=== PATIENT | female | born 1985 | race Caucasian/White ===

== ENCOUNTER 2017-02-14 14:52 | Inpatient (IN) | payer OTHER ==
[~2017-02-14] VITALS: Ht 170.2 cm; Wt 68.5 kg
[2017-02-14] MEDS ORDERED: LORAZEPAM 2 MG/1 ML VIAL IV ONE (15:07)
[2017-02-14] MEDS ORDERED: ONDANSETRON IV *ER 4 MG/2 ML VIAL IV ONE (15:08)
[2017-02-14] MEDS ORDERED: diphenhydrAMINE 50 MG/1 ML VIAL IV ONE (15:09)
[2017-02-14] MEDS ORDERED: IV NS 1000 ML 1,000 ML IV ONE ×2 (15:15→17:00)
[2017-02-14] MEDS ORDERED: PANTOPRAZOLE SODIUM 40 MG VIAL IV ONE (15:15)
[2017-02-14 15:27] LABS: BASOPHILS # (AUTO) 0.1 K/uL (0.0-8.0); BASOPHILS % (AUTO) 0.7 % (0.0-2.0); LYMPHOCYTES # (AUTO) 0.7 K/uL (20.0-40.0); LYMPHOCYTES % (AUTO) 6.7 % (20.5-51.5); MEAN CORPUSCULAR HGB CONC 34 g/dL (32.3-35.6); MEAN CORPUSCULAR VOLUME 102.2 fL (75.5-95.3); MONOCYTES # (AUTO) 0.9 K/uL (2.0-10.0); MONOCYTES % (AUTO) 8.5 % (0.0-11.0); NEUTROPHILS # (AUTO) 8.8 K/uL (1.8-8.9); NEUTROPHILS % (AUTO) 84.1 % (38.5-71.5); PLATELET COUNT (AUTO) 91 K/uL (179-408); WHITE BLOOD COUNT (AUTO) 10.4 K/uL (3.8-11.8)
--- NOTE | 2017-02-14 15:35 | NUR ---
PT IS IN ROOM #1A. DR MCMAHAN EVALUATED THE PT.
[2017-02-14] MEDS ORDERED: LORAZEPAM 2 MG/1 ML VIAL ONE (15:38)
[2017-02-14] MEDS ORDERED: diphenhydrAMINE 50 MG/1 ML VIAL ONE (15:39)
[2017-02-14] MEDS ORDERED: ONDANSETRON 4 MG/2 ML VIAL ONE (15:39)
[2017-02-14] MEDS ORDERED: PANTOPRAZOLE SODIUM 40 MG VIAL ONE (15:39)
[2017-02-14 16:29] LABS: ALANINE AMINOTRANSFERASE 72 U/L (14-59); ALKALINE PHOSPHATASE 63 U/L (50-136); ASPARTATE AMINOTRANSFERASE 240 U/L (15-37); BILIRUBIN,DIRECT 1.1 mg/dL (0.0-0.2); BILIRUBIN,TOTAL 2.3 mg/dL (0.2-1.0); CARBON DIOXIDE 13 mmol/L (21-32); CHLORIDE 90 mmol/L (98-107); CREATININE 1.3 mg/dL (0.6-1.3); GLUCOSE 231 mg/dL (74-106); POTASSIUM 3.6 mmol/L (3.5-5.1); TOTAL PROTEIN, SERUM 8.5 g/dL (6.4-8.2); UREA NITROGEN, BLOOD 10 mg/dL (7-18)
[2017-02-14 16:31] LABS: ACETAMINOPHEN < 2.0 ug/mL (10-30)
[2017-02-14 16:42] LABS: BAND % (MANUAL) 2 % (0-10); LYMPHOCYTES % (MANUAL) 6 % (20-40); MONOCYTES % (MANUAL) 8 % (2-10); NEUTROPHILS % (MANUAL) 84 % (42-75)
[2017-02-14 16:48] LABS: ETHANOL < 3 MG/DL (0-0)
--- NOTE | 2017-02-14 19:14 | NUR ---
REPORT GIVEN TO PARA EDUCATOR RN.
[2017-02-14 20:00] VITALS: BP 133/79
[2017-02-14] MEDS ORDERED: ACETAMINOPHEN 325 MG TABLET PO PRN (20:00)
[2017-02-14] MEDS ORDERED: Z GUARD REMEDY PASTE 57 GM TUBE TOP PRN (20:00)
[2017-02-14] MEDS ORDERED: ONDANSETRON 4 MG/2 ML VIAL IV PRN (20:00)
[2017-02-14] MEDS ORDERED: LORAZEPAM 2 MG/1 ML VIAL IV PRN (20:00)
[2017-02-14] MEDS ORDERED: MAGNESIUM HYDROXIDE 30 ML LIQUID UDC PO PRN (20:00)
[2017-02-14] MEDS ORDERED: ZOLPIDEM 5 MG TABLET PO PRN (20:00)
--- NOTE | 2017-02-14 20:50 | NUR ---
Pt admited from ER Dx of sz d/o and ETOH abuse. Arrived per natalie in company of ER staff. AAO X 3, follows simple commands, denied any pain or discomfort at the moment, no seizure activities present. Assessment completed, VSS, afebrile. Oriented to room, verbalized understanding, continue to monitor.
--- NOTE | 2017-02-14 20:56 | NUR ---
Ondina Hugo INDUCTION MACHINE OPERATOR at bedside to assess pt.
[2017-02-14 21:00] VITALS: BP 151/92
[2017-02-14 21:30] LABS: CREATININE 0.9 mg/dL (0.6-1.3); POTASSIUM 3.3 mmol/L (3.5-5.1)
[2017-02-14 22:00] VITALS: BP 124/80
[2017-02-14] MEDS: HYDROCODONE/APAP 5-325MG TABLET PO PRN (22:29)
[2017-02-14] MEDS: CHLORDIAZEPOXIDE HCL 25 MG CAPSULE PO SCH (22:30)
[2017-02-14] MEDS ORDERED: POTASSIUM CHLORIDE 20 MEQ TAB.PRT.SR PO ONE (22:30)
[2017-02-14] MEDS ORDERED: CHLORDIAZEPOXIDE HCL 25 MG CAPSULE ONE (22:41)
[2017-02-14] MEDS: GABAPENTIN 100 MG CAPSULE PO SCH (22:46)
[2017-02-14] MEDS: IV NS 1000 ML 1,000 ML IV PRN (22:46)
[2017-02-14 22:52] LABS: *BLOOD, URINE Trace-lysed (NEGATIVE); *CLARITY,URINE SLIGHTLY CLOUDY (CLEAR); *COLOR,URINE DARK YELLOW (YELLOW); *KETONES,URINE 4+ (NEGATIVE); *PROTEIN,URINE 2+ (NEGATIVE); LEUKOCYTE ESTERASE ,URINE NEGATIVE (NEGATIVE); NITRITE, URINE POSITIVE (NEGATIVE); UGLUCOSE NEGATIVE (NEGATIVE)
[2017-02-14] MEDS ORDERED: POTASSIUM CHLORIDE 20 MEQ TAB.PRT.SR ONE (22:52)
[2017-02-14] MEDS ORDERED: GABAPENTIN 100 MG CAPSULE ONE (22:59)
[2017-02-14 23:00] VITALS: BP 132/94
[2017-02-14 23:02] LABS: *AMPHETAMINE, URINE NEGATIVE (NEGATIVE); *BARBITURATE, URINE NEGATIVE (NEGATIVE); *CANNABINOID, URINE NEGATIVE (NEGATIVE); *COCCAINE, URINE NEGATIVE (NEGATIVE); *OPIATE, URINE NEGATIVE (NEGATIVE); *PHENCYCLIDINE SCREEN,URINE NEGATIVE (NEGATIVE)
[2017-02-14 23:08] LABS: *BILIRUBIN,URIN 2+ (NEGATIVE)
[2017-02-14 23:17] LABS: BACTERIA,URINE MODERATE /HPF (NONE SEEN); RBC,URINE 0-3 /HPF (0-3); SQUAMOUS EPITHELIAL CELL,UR MODERATE /HPF (NONE SEEN); WBC,URINE 0-3 /HPF (0-3)
[2017-02-15] VITALS (9 sets, daily range): BP systolic 108–140; BP diastolic 78–92
[2017-02-15 05:54] LABS: BASOPHILS % (AUTO) 0.4 % (0.0-2.0); EOSINOPHILS % (AUTO) 0.6 % (0.0-7.0); HEMATOCRIT 36.3 % (31.2-41.9); HEMOGLOBIN 12.4 g/dL (10.9-14.3); LYMPHOCYTES # (AUTO) 1.2 K/uL (20.0-40.0); LYMPHOCYTES % (AUTO) 21.4 % (20.5-51.5); MEAN CORPUSCULAR HEMOGLOBIN 34.4 uug (24.7-32.8); MEAN CORPUSCULAR HGB CONC 34 g/dL (32.3-35.6); MEAN CORPUSCULAR VOLUME 100.8 fL (75.5-95.3); MONOCYTES # (AUTO) 0.8 K/uL (2.0-10.0); MONOCYTES % (AUTO) 14.3 % (0.0-11.0); NEUTROPHILS # (AUTO) 3.5 K/uL (1.8-8.9); NEUTROPHILS % (AUTO) 63.3 % (38.5-71.5); PLATELET COUNT (AUTO) 65 K/uL (179-408); WHITE BLOOD COUNT (AUTO) 5.5 K/uL (3.8-11.8)
[2017-02-15 06:12] LABS: CREATININE 0.8 mg/dL (0.6-1.3); MAGNESIUM 1.7 mg/dL (1.8-2.4); PHOSPHOROUS 1.5 mg/dL (2.5-4.9); POTASSIUM 3.5 mmol/L (3.5-5.1)
[2017-02-15] MEDS: IV NS 1000 ML 1,000 ML IV PRN (06:19)
--- NOTE | 2017-02-15 07:45 | NUR ---
CCU [facility] TO TRANSFER TO [facility] PER DR ZHU. RECIEVED PT AWAKE AND ORIENTEDX3. NO SEIZURES EPISODE THROUGHOUT THE NIGHT. DENIES ANY DISCOMFORTS. PT VERBALIZED SHE WANTED TO GO HOME.
--- NOTE | 2017-02-15 08:35 | NUR ---
REPORT GIVEN TO DEBRA WEAVER. PT TRANSFERRED TO [facility] . CONDITION IS STABLE.
[2017-02-15] MEDS: GABAPENTIN 100 MG CAPSULE PO SCH ×2 (09:24→13:54)
[2017-02-15] MEDS: CHLORDIAZEPOXIDE HCL 25 MG CAPSULE PO SCH ×2 (09:24→13:00)
[2017-02-15] MEDS: HYDROCODONE/APAP 5-325MG TABLET PO PRN (09:25)
[2017-02-15 09:31] LABS: EOSINOPHILS % (MANUAL) 1 % (0-8); LYMPHOCYTES % (MANUAL) 22 % (20-40); MONOCYTES % (MANUAL) 13 % (2-10); NEUTROPHILS % (MANUAL) 64 % (42-75)
[2017-02-15] MEDS ORDERED: CHLO25CA22 PO (11:23)
--- NOTE | 2017-02-15 12:57 | NUR ---
PATIENT BEEN DISCHARGE HOME IN SAFE AND STABLE CONDITION. NO OCCURRENCE OF SEIZURES EPISODES AT THIS TIME. PATIENT SEEM CLAM AND COOPERATIVE WITH INTERVENTIONS. WILL CONTINUE MONITORING.
--- NOTE | 2017-02-15 14:08 | NUR ---
patient was taking home by her friend. no s/s of distress noted. no c/o of pain. all discharge instructions were explained and a copy was provided. Iv and ID removed. patient was taken by a wheelchair in safe conditions. all care was provided by staff during her stay.
== END 2017-02-15 14:08 | disposition home or self-care (01) | DRG 775 ==
LOC: ER 14:53 → CCU 19:03 → MED 02-15 08:41
PROVIDERS: ADMIT Internal Medicine; ATTEND Internal Medicine
DX: F10.239 Alcohol dependence with withdrawal, unspecified (principal); E87.2 Acidosis; G40.89 Other seizures; E86.0 Dehydration; G25.81 Restless legs syndrome; R74.0 Nonspecific elevation of levels of transaminase and lactic acid dehydrogenase [LDH]; R73.9 Hyperglycemia, unspecified; T51.0X1A Toxic effect of ethanol, accidental (unintentional), initial encounter; Y90.0 Blood alcohol level of less than 20 mg/100 ml; R79.89 Other specified abnormal findings of blood chemistry
CPT/HCPCS: 36415; 70450; 80307; 83605; 83735; 84100; 84703; 85025; A4663; C9113; G0480; G0480-TC; J1200; J2060; J2405; J7030